=== PATIENT | female | born 1985 | race Caucasian/White ===

== ENCOUNTER 2016-09-26 17:30 | Emergency (ER) | payer MEDICAID ==
[~2016-09-26] VITALS: Ht 165.1 cm; Wt 77.1 kg
[2016-09-26 17:48] VITALS: BP_SYST 129
--- NOTE | 2016-09-26 18:10 | NUR ---
Patient to ER rhome [address] [facility] for evaluation. Side rails up. Report given to Caitlin SAMAYOA.
--- NOTE | 2016-09-26 18:15 | NUR ---
C/O 9/10 throat pain with radiation to the left ear x 1 week.
--- NOTE | 2016-09-26 18:35 | NUR ---
ER Dr. Lawson at bedside examining patient.
[2016-09-26] MEDS ORDERED: IBUPROFEN 800 MG TABLET PO ONE (19:00)
[2016-09-26 19:03] VITALS: BP_SYST 122
--- NOTE | 2016-09-26 19:10 | NUR ---
Patient given written and verbal discharge instructions and verbalizes understanding. ER MD discussed with patient the results of physical exam Rx of Motrin and Cipro given. Patient educated on pain management and to follow up with PMD. Pain Scale 10/10 states comfortable to go home given Motrin for pain management prior to d/c. Opportunity for questions provided and answered.
== END 2016-09-26 19:03 | disposition home or self-care (01) ==
LOC: SED 17:30
DX: J02.9 Acute pharyngitis, unspecified (principal)
CPT/HCPCS: 99283

== ENCOUNTER 2019-01-16 00:16 | Emergency (ER) | payer MEDICAID ==
[~2019-01-16] VITALS: Ht 165.1 cm; Wt 93.4 kg
[2019-01-16 00:20] VITALS: BP_SYST 138
[2019-01-16] MEDS ORDERED: NACL 0.9% 1,000 ML IV ONE (01:00)
[2019-01-16 01:15] LABS: BASOPHILS # (AUTO) 0.1 K/uL (0.0-0.2); BASOPHILS % (AUTO) 0.7 % (0.0-2.0); EOSINOPHILS # (AUTO) 0.4 K/uL (0.0-0.4); EOSINOPHILS % (AUTO) 4.4 % (0.0-4.0); HEMATOCRIT 40.3 % (36-48); HEMOGLOBIN 13.8 g/dL (12.0-16.0); LYMPHOCYTES # (AUTO) 3.1 K/uL (1.0-5.5); LYMPHOCYTES % (AUTO) 33.1 % (20.5-51.5); MEAN CORPUSCULAR HEMOGLOBIN 30 pg (27-31); MEAN CORPUSCULAR HGB CONC 34 % (32-36); MEAN CORPUSCULAR VOLUME 87 fL (79.0-98.0); MONOCYTES # (AUTO) 0.8 K/uL (0.0-1.0); MONOCYTES % (AUTO) 9.1 % (1.7-9.3); NEUTROPHILS # (AUTO) 4.9 K/uL (1.8-7.7); NEUTROPHILS % (AUTO) 52.7 % (40.0-70.0); PLATELET COUNT (AUTO) 303 K/uL (130-430); RED BLOOD CELL COUNT(AUTO) 4.64 MIL/uL (4.2-6.2); RED CELL DISTRIBUTION WIDTH 13.3 % (9.0-15.0); WHITE BLOOD COUNT (AUTO) 9.3 K/uL (4.8-10.8)
--- NOTE | 2019-01-16 01:15 | NUR ---
Patient to ER bed H1 to gown for evaluation. Side rails up.
--- NOTE | 2019-01-16 01:17 | NUR ---
Pt brought by family, A&Ox4, pt states she is 13 weeks , c/o vaginal spotting 15 minutes ago , N/V and lower abdominal cramping , skin pink and warm, cap refill <3, VSS, respirations even and unlabored.
[2019-01-16 01:21] LABS: CALCIUM 9.4 mg/dL (8.4-11.0); CREATININE 0.58 mg/dL (0.55-1.30); POTASSIUM 4.4 mmol/L (3.5-5.1)
[2019-01-16 01:27] LABS: ALBUMIN 3.4 g/dL (3.4-4.8); TOTAL BILIRUBIN 0.5 mg/dL (0.0-1.0)
--- NOTE | 2019-01-16 01:35 | NUR ---
Nan baugh in [facility] - 01/16/19 at [email or web address] Muñoz at bedside examining patient
[2019-01-16 01:54] LABS: BILIRUBIN,URINE NEGATIVE (NEGATIVE); BLOOD, URINE NEGATIVE (NEGATIVE); CLARITY/URINE CLEAR (CLEAR); COLOR,URINE YELLOW (YELLOW); GLUCOSE,URINE NEGATIVE (NEGATIVE); KETONES,URINE NEGATIVE (NEGATIVE); LEUKOCYTE ESTERASE ,URINE NEGATIVE (NEGATIVE); NITRITE, URINE NEGATIVE (NEGATIVE); PROTEIN URINE NEGATIVE (NEGATIVE); UROBILINOGEN,URINE 0.2 (0.2-1.0)
--- NOTE | 2019-01-16 01:57 | NUR ---
Pt on stable condition ,report given to González SAMAYOA
[2019-01-16 03:32] VITALS: BP_SYST 129
--- NOTE | 2019-01-16 03:32 | NUR ---
Patient given written and verbal discharge instructions and verbalizes understanding. ER MD discussed with patient the results and treatment provided. Patient in stable condition. ID arm band removed. IV catheter removed intact and dressing applied, no active bleeding. No Rx given. Patient educated on pain management and to follow up with PMD. Pain Scale 0. Opportunity for questions provided and answered. Medication side effect fact sheet provided.
== END 2019-01-16 03:32 | disposition home or self-care (01) ==
LOC: SED 00:16
DX: O20.9 Hemorrhage in early pregnancy, unspecified (principal); E07.9 Disorder of thyroid, unspecified; Z3A.13 13 weeks gestation of pregnancy
CPT/HCPCS: 36415; 76801; 80053; 81003; 81025; 85025; 99284; J7030

== ENCOUNTER 2021-07-03 22:10 | Emergency (ER) | payer MEDICAID ==
[~2021-07-03] VITALS: Ht 165.1 cm; Wt 117.9 kg
[2021-07-03 22:20] VITALS: BP_SYST 125
--- NOTE | 2021-07-03 22:40 | NUR ---
Pt brought by self,A&Ox4, pt presents to ER with R lower abdominal pain, states she has a hernia, pt also c/o cough/congestion/bodyaches , pt tested negative for covid yesterday, skin pink and warm, cap refill <3, denies bleeding, VSS, will cont to monitor.
--- NOTE | 2021-07-03 23:20 | NUR ---
Dr. Sales bedside for pt eval
[2021-07-03] MEDS ORDERED: NACL 0.9% 1,000 ML IV ONE (23:30)
[2021-07-03] MEDS ORDERED: KETOROLAC TROMETHAMINE 30 MG VIAL IVP ONE (23:30)
--- NOTE | 2021-07-04 00:04 | NUR ---
Pt taken to Radiology in stable condition
--- NOTE | 2021-07-04 00:14 | NUR ---
Pt back from Radiology well tolerated
[2021-07-04 00:27] LABS: BASOPHILS # (AUTO) 0.1 K/uL (0.0-0.2); EOSINOPHILS # (AUTO) 0.5 K/uL (0.0-0.4); EOSINOPHILS % (AUTO) 5.2 % (0.0-4.0); HEMATOCRIT 40.2 % (36-48); HEMOGLOBIN 13.4 g/dL (12.0-16.0); LYMPHOCYTES # (AUTO) 3.1 K/uL (1.0-5.5); LYMPHOCYTES % (AUTO) 34.7 % (20.5-51.5); MEAN CORPUSCULAR HEMOGLOBIN 29 pg (27-31); MEAN CORPUSCULAR HGB CONC 33 % (32-36); MEAN CORPUSCULAR VOLUME 86 fL (79.0-98.0); MONOCYTES # (AUTO) 0.6 K/uL (0.0-1.0); MONOCYTES % (AUTO) 6.2 % (1.7-9.3); NEUTROPHILS # (AUTO) 4.7 K/uL (1.8-7.7); NEUTROPHILS % (AUTO) 52.9 % (40.0-70.0); PLATELET COUNT (AUTO) 309 K/uL (130-430); RED BLOOD CELL COUNT(AUTO) 4.67 MIL/uL (4.2-6.2); RED CELL DISTRIBUTION WIDTH 13.9 % (9.0-15.0); WHITE BLOOD COUNT (AUTO) 8.9 K/uL (4.8-10.8)
--- NOTE | 2021-07-04 00:30 | NUR ---
Pt states " feeling a little better "
[2021-07-04 00:41] LABS: CALCIUM 8.6 mg/dL (8.4-11.0); CREATININE 0.75 mg/dL (0.55-1.30); POTASSIUM 3.4 mmol/L (3.5-5.1)
--- NOTE | 2021-07-04 01:00 | NUR ---
Dr. Sales bedside for pt update
[2021-07-04 01:01] LABS: TOTAL BILIRUBIN 0.2 mg/dL (0.0-1.0)
[2021-07-04 01:29] LABS: BILIRUBIN,URINE NEGATIVE (NEGATIVE); BLOOD, URINE NEGATIVE (NEGATIVE); CLARITY/URINE CLEAR (CLEAR); COLOR,URINE YELLOW (YELLOW); GLUCOSE,URINE NEGATIVE (NEGATIVE); KETONES,URINE NEGATIVE (NEGATIVE); LEUKOCYTE ESTERASE ,URINE NEGATIVE (NEGATIVE); NITRITE, URINE NEGATIVE (NEGATIVE); PROTEIN URINE NEGATIVE (NEGATIVE); UROBILINOGEN,URINE 0.2 (0.2-1.0)
[2021-07-04 02:00] VITALS: BP_SYST 148
--- NOTE | 2021-07-04 02:00 | NUR ---
Patient given written and verbal discharge instructions and verbalizes understanding. ER MD discussed with patient the results and treatment provided. Patient in stable condition. ID arm band removed. IV catheter removed intact and dressing applied, no active bleeding. Patient educated on pain management and to follow up with PMD. Pain Scale 0/10 Opportunity for questions provided and answered.
== END 2021-07-04 02:00 | disposition home or self-care (01) ==
LOC: MERGE 22:10 → SED 22:10
DX: K42.9 Umbilical hernia without obstruction or gangrene (principal); J45.909 Unspecified asthma, uncomplicated
CPT/HCPCS: 36415; 74177; 76376; 80053; 81003; 81025; 85025; 96361; 96374; 99285; J7030; Q9967

== ENCOUNTER 2021-12-04 22:19 | Emergency (ER) | payer MEDICAID ==
[~2021-12-04] VITALS: Ht 165.1 cm; Wt 108.9 kg
[2021-12-04 22:41] VITALS: BP_SYST 122
--- NOTE | 2021-12-04 22:50 | NUR ---
Nan baugh in [facility] - 12/05/21 at 0424 by [email or web address] JOSE ALFREDO CARL at bedside examining patient.
[2021-12-04 23:27] LABS: BASOPHILS # (AUTO) 0.2 K/uL (0.0-0.2); BASOPHILS % (AUTO) 2.7 % (0.0-2.0); EOSINOPHILS # (AUTO) 0.7 K/uL (0.0-0.4); EOSINOPHILS % (AUTO) 8.6 % (0.0-4.0); HEMATOCRIT 39.6 % (36-48); HEMOGLOBIN 13.4 g/dL (12.0-16.0); LYMPHOCYTES # (AUTO) 3.1 K/uL (1.0-5.5); LYMPHOCYTES % (AUTO) 37.8 % (20.5-51.5); MEAN CORPUSCULAR HEMOGLOBIN 30 pg (27-31); MEAN CORPUSCULAR HGB CONC 34 % (32-36); MEAN CORPUSCULAR VOLUME 87 fL (79.0-98.0); MONOCYTES # (AUTO) 0.6 K/uL (0.0-1.0); NEUTROPHILS # (AUTO) 3.6 K/uL (1.8-7.7); NEUTROPHILS % (AUTO) 43.9 % (40.0-70.0); PLATELET COUNT (AUTO) 290 K/uL (130-430); RED BLOOD CELL COUNT(AUTO) 4.55 MIL/uL (4.2-6.2); RED CELL DISTRIBUTION WIDTH 13.7 % (9.0-15.0); WHITE BLOOD COUNT (AUTO) 8.2 K/uL (4.8-10.8)
[2021-12-04 23:33] LABS: BILIRUBIN,URINE NEGATIVE (NEGATIVE); BLOOD, URINE 2+ (NEGATIVE); CLARITY/URINE CLEAR (CLEAR); COLOR,URINE YELLOW (YELLOW); GLUCOSE,URINE NEGATIVE (NEGATIVE); KETONES,URINE NEGATIVE (NEGATIVE); LEUKOCYTE ESTERASE ,URINE NEGATIVE (NEGATIVE); NITRITE, URINE NEGATIVE (NEGATIVE); PROTEIN URINE NEGATIVE (NEGATIVE); UROBILINOGEN,URINE 0.2 (0.2-1.0)
[2021-12-04 23:41] LABS: BACTERIA,URINE RARE /HPF (None Seen); CALCIUM 8.9 mg/dL (8.4-11.0); CREATININE 0.8 mg/dL (0.55-1.30); POTASSIUM 3.4 mmol/L (3.5-5.1); RBC,URINE 0-3 /HPF (0-3); WBC,URINE 0-3 /HPF (0-3)
[2021-12-04 23:47] LABS: ALBUMIN 3.8 g/dL (3.4-4.8); TOTAL BILIRUBIN 0.2 mg/dL (0.0-1.0)
--- NOTE | 2021-12-05 00:06 | NUR ---
Patient to ER bed 02 to gown for evaluation. Side rails up. Report given to DANITA GUTIERRES
--- NOTE | 2021-12-05 00:18 | NUR ---
PT MOVED TO BED 2 REPORT RECIEVED FROM DEMETRIS SAMAYOA PT HAVING RUQ PAIN RADIATING TO RIGHT FLANK STATES SHE FELT NAUSEOUS YESTERDAY. DENIES FEVER, CHILLS, DIARRHEA, VOMITING PAIN WORSENS WHEN SHE IS SITTING HX HERNIA SURGEY 2 MONTHS AGO
--- NOTE | 2021-12-05 00:30 | NUR ---
JOSE ALFREDO Mendes at bedside examining patient.
[2021-12-05] MEDS ORDERED: MORPHINE 4 MG INJ. 4 MG/ML VIAL IVP ONE ×2 (01:00→01:15)
[2021-12-05] MEDS ORDERED: KETOROLAC TROMETHAMINE 30 MG VIAL IVP ONE (01:00)
[2021-12-05] MEDS ORDERED: NACL 0.9% 1,000 ML IV ONE (01:00)
--- NOTE | 2021-12-05 03:03 | NUR ---
Patient reports pain 4/10 after administration of morphine and toradol. No adverse reactions noted. Will continue to monitor.
[2021-12-05] MEDS ORDERED: SENN-234 PO (04:02)
[2021-12-05] MEDS ORDERED: POLY119P3 PO (04:02)
[2021-12-05] MEDS ORDERED: DOCU-144 PO (04:02)
--- NOTE | 2021-12-05 04:25 | NUR ---
Patient given written and verbal discharge instructions and verbalizes understanding. ER MD discussed with patient the results and treatment provided. Patient in stable condition. ID arm band removed. IV catheter removed intact and dressing applied, no active bleeding. Rx sent to preferred pharmacy. Patient educated on pain management and to follow up with PMD. Pain Scale 3/10. Opportunity for questions provided and answered. Medication side effect fact sheet provided.
[2021-12-05 04:26] VITALS: BP_SYST 120
== END 2021-12-05 04:26 | disposition home or self-care (01) ==
LOC: SED 22:19
DX: K59.00 Constipation, unspecified (principal); R10.11 Right upper quadrant pain; Z88.0 Allergy status to penicillin; Z79.899 Other long term (current) drug therapy
CPT/HCPCS: 36415; 74176; 76376; 76700; 80053; 81000; 81025; 83690; 85025; 96361; 96374; 96375; 99285; J1885; J2270; J7030

== ENCOUNTER 2022-08-16 13:28 | Emergency (ER) | payer MEDICAID ==
[~2022-08-16] VITALS: Ht 165.1 cm; Wt 104.3 kg
[~2022-08-16 13:28] MED LIST: DOCU-144 PO; POLY119P3 PO; SENN-234 PO
[2022-08-16 13:33] VITALS: BP_SYST 148
--- NOTE | 2022-08-16 13:46 | NUR ---
PT BIB SELF FROM HOME, AMBULATED TO BED 4. PT AAOx4, ABLE TO MAKE NEEDS KNOWN. PT C/O DIZZINESS BEGINNING IN THE MORNING. PT STATES THAT SHE HAS BEEN EXPERIENCING BLURRY VISION, TINGLING AT FINGERTIPS AND ANTERIOR CHEST TIGHTNESS. PT DENIES PAIN AT THIS TIME. PT HAS NAUSEA, BUT DENIES VOMITING. PT STATES HAS A HISTORY OF ASTHMA AND ANXIETY. PT'S LAST MENTURAL 08/07/22. ALL SAFETY MEASURES IN PLACE.
[2022-08-16] MEDS ORDERED: MECLIZINE HCL 25 MG TABLET (ANITVERT) PO ONE (14:15)
[2022-08-16] MEDS ORDERED: METOCLOPRAMIDE HCL 10 MG/2 ML VIAL IVP ONE (14:15)
--- NOTE | 2022-08-16 14:22 | NUR ---
XRAY AT BEDSIDE
--- NOTE | 2022-08-16 14:24 | NUR ---
PT TAKEN TO CT IN WHEELCHAIR
--- NOTE | 2022-08-16 14:30 | NUR ---
PT RETURN FROM CT.
--- NOTE | 2022-08-16 15:06 | NUR ---
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 MADE PT AWARE OF RISKS AND BENEFITS OF LEAVING WITHOUT BEING SEEN.
[2022-08-16 15:10] VITALS: BP_SYST 148
[2022-08-16 15:15] LABS: BASOPHILS # (AUTO) 0.1 K/uL (0.0-0.2); BASOPHILS % (AUTO) 1.2 % (0.0-2.0); EOSINOPHILS # (AUTO) 0.7 K/uL (0.0-0.4); EOSINOPHILS % (AUTO) 8.4 % (0.0-4.0); HEMATOCRIT 42.8 % (36-48); HEMOGLOBIN 14.4 g/dL (12.0-16.0); LYMPHOCYTES # (AUTO) 2.2 K/uL (1.0-5.5); LYMPHOCYTES % (AUTO) 27.6 % (20.5-51.5); MEAN CORPUSCULAR HEMOGLOBIN 30 pg (27-31); MEAN CORPUSCULAR HGB CONC 34 % (32-36); MEAN CORPUSCULAR VOLUME 88 fL (79.0-98.0); MONOCYTES # (AUTO) 0.4 K/uL (0.0-1.0); MONOCYTES % (AUTO) 5.7 % (1.7-9.3); NEUTROPHILS # (AUTO) 4.5 K/uL (1.8-7.7); NEUTROPHILS % (AUTO) 57.1 % (40.0-70.0); PLATELET COUNT (AUTO) 303 K/uL (130-430); RED BLOOD CELL COUNT(AUTO) 4.86 MIL/uL (4.2-6.2); WHITE BLOOD COUNT (AUTO) 7.8 K/uL (4.8-10.8)
[2022-08-16 15:19] LABS: ANION GAP 12 (5-15); CALCIUM 9.5 mg/dL (8.4-11.0); CHLORIDE 99 mmol/L (98-107); CREATININE 0.71 mg/dL (0.55-1.30); GLUCOSE 93 mg/dL (70-99); UREA NITROGEN, BLOOD 10 mg/dL (8-21)
[2022-08-16 15:26] LABS: ALANINE AMINOTRANSFERASE 31 U/L (12-78); ALBUMIN 4.7 g/dL (3.4-4.8); ASPARTATE AMINOTRANSFERASE 22 U/L (10-37)
[2022-08-16 15:30] LABS: GFR AFRICAN AMERICAN 118 mL/min (>90)
== END 2022-08-16 15:06 | disposition left against medical advice (07) ==
LOC: SED 13:28
DX: R42 Dizziness and giddiness (principal); R51.9 Headache, unspecified; R11.0 Nausea; J45.909 Unspecified asthma, uncomplicated; Z88.0 Allergy status to penicillin; Z79.899 Other long term (current) drug therapy
CPT/HCPCS: 99285; 70450; 71045; 80053; 82550; 85025; 84484; 36415; 93005; 76376; 81025; J8597; J2765

== ENCOUNTER 2022-12-08 21:02 | Emergency (ER) | payer BC, MEDICAID ==
[~2022-12-08] VITALS: Ht 165.1 cm; Wt 102.1 kg
[2022-12-08 21:26] VITALS: BP_SYST 122
--- NOTE | 2022-12-08 21:35 | NUR ---
PATIENT PRESENTS WITH INSECT BITE THAT OCCURRED YESTERDAY, BITE NOTED TO RIGHT THIGH, LEFT SHOULDER, LEFT ARM AND ABDOMEN, 7/10 PAIN
[2022-12-08] MEDS ORDERED: IBUP-1969 PO (22:28)
[2022-12-08] MEDS ORDERED: SULF1TAB48 PO (22:28)
--- NOTE | 2022-12-08 23:00 | NUR ---
MD ASSESSED PATIENT IN TRIAGE ROOM
--- NOTE | 2022-12-08 23:51 | NUR ---
Patient given written and verbal discharge instructions and verbalizes understanding. ER MD discussed with patient the results and treatment provided. Patient in stable condition. ID arm band removed. INSTRUCTED TO FOLLOW UP FOR WORSENING SYMPTOMS. Rx of given. Patient educated on pain management and to follow up with PMD. Pain Scale 5/10. Opportunity for questions provided and answered. Medication side effect fact sheet provided.
[2022-12-08 23:53] VITALS: BP_SYST 134
== END 2022-12-08 23:53 | disposition home or self-care (01) ==
LOC: SED 21:02
DX: L03.115 Cellulitis of right lower limb (principal); R21 Rash and other nonspecific skin eruption; J45.909 Unspecified asthma, uncomplicated; Z88.0 Allergy status to penicillin; Z79.899 Other long term (current) drug therapy
CPT/HCPCS: 99282